=== PATIENT | female | born 1945 ===

== ENCOUNTER 2023-03-24 13:41 | Outpatient (AMB) | payer MEDICARE, SELFPAY ==
--- NOTE | 2023-03-24 14:00 | MHC.OFFVIS ---
Intake Vital Signs 03/24/23 14:02 Height 5 ft 2 in Weight 154 lb BMI 28.2 BP 124/69 Blood Pressure Location Lt brachial Position Sitting Respiration 12 Pulse 66 Pulse Source Pulse Oximeter Pulse Oximetry (%) 95 Oxygen Delivery Method Room Air Intake Visit Reasons: Chronic Lumbar Back Pain/confirmed Allergies No Known Allergies Allergy (Verified 03/24/23 14:03) Medication List - Last Reconciled 03/24/23 by Magda Heck LPN atenolol-chlorthalidone 100-25 mg 1 tab PO DAILY losartan 100 mg PO DAILY methocarbamol 750 mg PO BID PRN omeprazole 20 mg PO DAILY oxycodone 10 mg PO BID PRN sertraline 50 mg PO DAILY sertraline 25 mg PO DAILY spironolactone 25 mg PO DAILY tramadol 50 mg PO BID PRN zolpidem 10 mg PO BEDTIME PRN HPI Chronic Lumbar Back Pain/confirmed HPI Details 77-year-old female who presents today to the office for an evaluation of chronic lumbar back pain. The patient reports persistent low back pain. The pain radiates down her legs, down to the back of her knees. 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 She spends most of the time in bed. She is unable to stand at the kitchen counter to cook or in the sink to wash any dishes. She has difficulty walking, lowering herself down to the toilet, and lying down. She bends on the grocery cart for support. She has been through different providers to help manage her pain over the years. She was started on belbuca, which initially helped her pain but has slowly stopped being effective. She had a steroid injection into her lumber spine, which lasted for two days. Her pain management provided her with diazepam and methocarbamol, which do not work. She had seen a chiropractor about 15 years ago, with good relief. She will follow up with a spine surgeon to assess her candidacy for surgery. She had an MRI scan a month ago. 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 ? [facility] Medical History (Updated 03/27/23 @ 14:11 by Igor Bledsoe MD) GBS (Guillain [place] syndrome) Vitamin D deficiency Chronic back pain COPD (chronic obstructive pulmonary disease) CKD (chronic kidney disease) HTN (hypertension) Tinnitus Osteoarthritis Osteoporosis Migraine IBS (irritable bowel syndrome) Depression Chronic inflammatory demyelinating polyneuropathy AR (allergic rhinitis) RLS (restless legs syndrome) Review of Systems Const All systems reviewed & are unremarkable except as noted in HPI and below Physical Exam Vital Signs: Last Vital Signs Pulse 66 03/24/23 14:02 Resp 12 03/24/23 14:02 BP 124/69 03/24/23 14:02 Pulse Ox 95 03/24/23 14:02 Oxygen Delivery Method Room Air 03/24/23 14:02 BMI result Body Mass Index 28.2 General: Appears afebrile. Alert and oriented. Mood and affect appropriate. Follows and participates in conversation appropriately. Respiratory effort is unlabored. Able to transition from sit to stand unassisted. Ambulates with bilaterally normal heel strike and toe off. Results Reviewed Results Reviewed: MR Lumbar Spine FINDINGS: NUMBERING: The study assumes 5 [id number] lumbar type vertebral bodies. ALIGNMENT, VERTEBRAE, MARROW, AND DISCS: There is minimal anterolisthesis of L5 on S1. Otherwise, alignment is maintained. Vertebral body heights are preserved. There are Modic type I degenerative endplate marrow signal changes at the L3-L4 through L5-S1 levels as well as Modic type II signal changes at L3-L4 and L5-S1. Areas multilevel disc desiccation, with mild loss of intervertebral disc height at L3-L4 and L5-S1 as well as vacuum disc phenomenon at these levels. CONUS: The conus is normal in signal and contour, with normal level of termination at L1. PARASPINAL TISSUES: There is atrophy of the paraspinal musculature. Cholelithiasis. Asymmetric left renal atrophy. Multiple renal cysts. DETAILED FINDINGS BY LEVEL: L1-L2: No significant canal stenosis or neural foraminal narrowing. L2-L3: Minimal disc bulge. Ligamentum flavum thickening, left-sided facet spurring. No significant canal stenosis. Minimal bilateral neural foraminal narrowing. L3-L4: Diffuse disc bulge with ligamentum flavum thickening and facet arthropathy resulting in moderate narrowing of the spinal canal, moderate left neural foraminal narrowing, and mild right neural foraminal narrowing. L4-L5: Diffuse disc bulge with ligamentum flavum thickening and facet arthropathy resulting in mild narrowing of the spinal canal. There is mild to moderate bilateral neural foraminal narrowing, left greater than right. L5-S1: Anterolisthesis with uncovering of the intervertebral disc as well as a diffuse disc bulge, ligamentum flavum thickening, and facet arthropathy. There is mild to moderate canal stenosis and there is narrowing of the subarticular zones, right greater than left, with crowding of possible impingement of the traversing S1 nerve roots. There is mild to moderate left and severe right neural foraminal narrowing with crowding of the exiting right L5 nerve root. IMPRESSION: Multilevel degenerative changes as detailed above which are most advanced at L5-S1 where there is crowding and possible impingement of the bilateral traversing S1 nerve roots (right greater than left) and of the exiting right L5 nerve root. Assessment & Plan Assessment & Plan (1) Vertebrogenic low back pain: Code(s): M54.51 - Vertebrogenic low back pain (2) Spinal stenosis, lumbar region with neurogenic claudication: Code(s): M48.062 - Spinal stenosis, lumbar region with neurogenic claudication Plan Discussed MILD and BVN ablation at L3-4 and L4-5 levels as possible treatment options for the patient. Explained the details of the procedures and discussed her MRI findings with the patient. The procedure brochures were provided to the patient. The patient will think over it and inform us if she wants to proceed with either of the two procedures. Scribed for Dr. Bledsoe by Rojas Bean, medical records assistant, on 03/24/2023. I, Dr. Bledsoe, have personally reviewed and agree with the information entered by the scribe. Coding Level of Care Code New Pt Level 4 (99760) Diagnoses Vertebrogenic low back pain M54.51 Spinal stenosis, lumbar region with neurogenic claudication M48.062
[2023-03-24 14:02] VITALS: BP 124/69; PULSE 66; RESP 12; O2SAT 95; BMI 28.2
== END 2023-03-24 14:49 | disposition home or self-care (01) ==
PROVIDERS: PCP Internal Medicine; Referring Provider Internal Medicine; Visit Provider Internal Medicine
DX: M54.51 Vertebrogenic low back pain (principal); M48.062 Spinal stenosis, lumbar region with neurogenic claudication
CPT/HCPCS: 99204

== ENCOUNTER → 2023-03-24 13:41 | Outpatient (BNVA) | payer MEDICARE, SELFPAY | PROVIDERS: PCP Internal Medicine; Visit Provider Internal Medicine | DX: M54.51 Vertebrogenic low back pain (principal); M48.062 Spinal stenosis, lumbar region with neurogenic claudication | CPT/HCPCS: 99202 ==